=== PATIENT | female | born 1970 | race Two or more races ===

== ENCOUNTER 2017-09-27 10:02 | Outpatient (CLI) | payer OTHER ==
[~2017-09-27] VITALS: Ht 152.4 cm; Wt 106.6 kg
[~2017-09-27 10:02] MED LIST: CIPRO500 MG PO; ZYRTEC10 MG PO
== END 2017-09-27 10:15 | disposition home or self-care (01) ==
LOC: OFIC 805 10:02
DX: J34.2 Deviated nasal septum (principal); J34.3 Hypertrophy of nasal turbinates; J45.998 Other asthma; J32.8 Other chronic sinusitis

== ENCOUNTER 2017-10-25 10:15 | Outpatient (CLI) | payer OTHER ==
[~2017-10-25] VITALS: Ht 152.4 cm; Wt 106.6 kg
[2017-10-31] MEDS ORDERED: PAXIL40 MG PO (08:40)
[2017-10-31] MEDS ORDERED: CLONAZEPAM2 M1 PO (08:41)
[2017-10-31] MEDS ORDERED: TRAZODONE HCL50 MG PO (08:42)
[2017-10-31] MEDS ORDERED: SINGULAIR10 MG PO (08:42)
[2017-10-31] MEDS ORDERED: VITAMIN D32000 UNI1 PO (08:43)
== END 2017-10-25 10:30 | disposition home or self-care (01) ==
LOC: OFIC 805 10:15
DX: J34.2 Deviated nasal septum (principal); J34.3 Hypertrophy of nasal turbinates; J31.0 Chronic rhinitis; J32.8 Other chronic sinusitis

== ENCOUNTER 2017-11-07 06:10 | Day surgery (SDC) | payer OTHER ==
[~2017-11-07 06:10] MED LIST changes: +CLONAZEPAM2 M1 PO; +PAXIL40 MG PO; +SINGULAIR10 MG PO; +TRAZODONE HCL50 MG PO; +VITAMIN D32000 UNI1 PO
[2017-11-07] MEDS ORDERED: ULTRACET PO ×2 (13:48→16:08)
[2017-11-07] MEDS ORDERED: AFRIN15 ML NASAL (13:48)
[2017-11-07] MEDS ORDERED: CIPRO500 MG PO (13:48)
== END 2017-11-07 17:45 | disposition home or self-care (01) ==
LOC: CIR.AMB 06:10
DX: J31.0 Chronic rhinitis (principal); J32.8 Other chronic sinusitis

== ENCOUNTER 2017-11-15 09:34 | Outpatient (CLI) | payer OTHER ==
[~2017-11-15] VITALS: Ht 152.4 cm; Wt 106.6 kg
[~2017-11-15 09:34] MED LIST changes: +AFRIN15 ML NASAL; +ULTRACET PO
[2017-11-15] MEDS ORDERED: NEILMED SINUS1 EAC1 NASAL (10:39)
== END 2017-11-15 09:50 | disposition home or self-care (01) ==
LOC: OFIC 805 09:34
DX: J31.0 Chronic rhinitis (principal); J34.2 Deviated nasal septum; J32.8 Other chronic sinusitis; J34.3 Hypertrophy of nasal turbinates

== ENCOUNTER 2017-12-27 10:42 | Outpatient (CLI) | payer OTHER ==
[~2017-12-27] VITALS: Ht 152.4 cm; Wt 106.6 kg
[~2017-12-27 10:42] MED LIST changes: +NEILMED SINUS1 EAC1 NASAL
[2017-12-27] MEDS ORDERED: ZYRTEC10 MG PO (12:33)
[2017-12-27] MEDS ORDERED: SINGULAIR10 MG PO (12:34)
== END 2017-12-27 11:00 | disposition home or self-care (01) ==
LOC: OFIC 805 10:42
DX: J01.80 Other acute sinusitis (principal); J32.8 Other chronic sinusitis; J34.3 Hypertrophy of nasal turbinates; J34.2 Deviated nasal septum; J31.0 Chronic rhinitis

== ENCOUNTER 2018-05-02 10:55 | Outpatient (CLI) | payer OTHER ==
[~2018-05-02] VITALS: Ht 152.4 cm; Wt 106.6 kg
[2018-05-02] MEDS ORDERED: ZYRTEC10 MG PO (14:01)
[2018-05-02] MEDS ORDERED: SINGULAIR10 MG PO (14:01)
[2018-05-02] MEDS ORDERED: DERMOTIC20 ML OTIC (14:02)
== END 2018-05-02 11:15 | disposition home or self-care (01) ==
LOC: OFIC 805 10:55
DX: J32.8 Other chronic sinusitis (principal); J30.89 Other allergic rhinitis; J45.998 Other asthma

== ENCOUNTER → 2018-09-11 | Outpatient (CLI) | payer OTHER ==
[~2018-09-11] MED LIST changes: +DERMOTIC20 ML OTIC
== END | disposition home or self-care (01) ==
LOC: MRI 11:50
DX: M75.121 Complete rotator cuff tear or rupture of right shoulder, not specified as traumatic (principal)
CPT/HCPCS: 73221

== ENCOUNTER 2018-12-03 05:50 | Day surgery (SDC) | payer OTHER ==
[~2018-12-03 05:50] MED LIST changes: +NEURONTIN300 MG PO; +OMEGA 3-6-9 11200 M1 PO; +SYNTHROID200 MCG PO; +TRAZODONE HCL150 MG PO
[2018-12-03] MEDS ORDERED: Septra Ds Tablet PO (09:04)
[2018-12-03] MEDS ORDERED: ULTRAM50 MG PO (09:04)
== END 2018-12-03 12:40 | disposition home or self-care (01) ==
LOC: CIR.AMB 05:50
DX: M75.121 Complete rotator cuff tear or rupture of right shoulder, not specified as traumatic (principal); M75.41 Impingement syndrome of right shoulder

== ENCOUNTER 2021-07-05 06:13 | Day surgery (SDC) | payer OTHER ==
[~2021-07-05 06:13] MED LIST changes: +CRESTOR10 MG PO; +HORIZANT300 MG PO; +SYNTHROID100 MCG PO; +SYNTHROID88 MCG PO; +Septra Ds Tablet PO; +TRENTAL PO; +ULTRAM50 MG PO
[2021-07-05] MEDS ORDERED: DOLOGESIC 500-1 EACH PO (08:58)
[2021-07-05] MEDS ORDERED: BACTRIM DS TAB1 EACH PO (08:58)
== END 2021-07-05 15:30 | disposition home or self-care (01) ==
LOC: CIR.AMB 06:13
PROVIDERS: ATTEND Orthopaedic Surgery Sports Medicine
DX: M23.352 Other meniscus derangements, posterior horn of lateral meniscus, left knee (principal); M23.342 Other meniscus derangements, anterior horn of lateral meniscus, left knee; M65.862 Other synovitis and tenosynovitis, left lower leg; Z20.822 Contact with and (suspected) exposure to COVID-19

== ENCOUNTER 2024-08-08 10:50 | Outpatient (CLI) | payer OTHER ==
[~2024-08-08 10:50] MED LIST changes: +BACTRIM DS TAB1 EACH PO; +DOLOGESIC 500-1 EACH PO
== END 2024-08-08 10:52 | disposition home or self-care (01) ==
LOC: RAD 10:50
PROVIDERS: ATTEND Internal Medicine Pulmonary Disease
DX: J45.31 Mild persistent asthma with (acute) exacerbation (principal)